=== PATIENT | male | born 1940 | race Caucasian/White ===

== ENCOUNTER 2018-01-30 15:28 | Emergency (ER) | payer MEDICARE, MEDICAID ==
[~2018-01-30] VITALS: Ht 162.6 cm; Wt 58.0 kg
[~2018-01-30 15:28] MED LIST: ALBU8.5H8 IH; ESCI20TA PO; FLUT1AER; HYDR-565 PO; LORA10TA7 PO; OLAN5TAB3 PO; PRO100T PO; TRIA15CR61 TP; [UNRECOGNIZED DRUG - OTHER] PO
[2018-01-30 16:41] LABS: BASOPHILS % (AUTO) 0.3 % (0-1); EOSINOPHILS # (AUTO) 0.2 X10'3 (0-0.9); HEMOGLOBIN 8.5 g/dl (14.0-17.9); LYMPHOCYTES # (AUTO) 0.8 X10'3 (1.1-4.8); LYMPHOCYTES % (AUTO) 10.5 % (21-51); MEAN CORPUSCULAR HEMOGLOBIN 21.5 PG (27.0-31.0); MEAN CORPUSCULAR HGB CONC 31.4 % (33.0-36.5); MEAN CORPUSCULAR VOLUME 68.7 FL (78-98); MEAN PLATELET VOLUME 7.2 FL (7.4-10.4); MONOCYTES # (AUTO) 0.6 X10'3 (0-0.9); MONOCYTES % (AUTO) 7.5 % (2-12); NEUTROPHILS # (AUTO) 6.2 X10'3 (1.8-7.7); NEUTROPHILS % (AUTO) 79.7 % (42-75); PLATELET COUNT 234 X10'3 (140-440); RED BLOOD COUNT 3.93 X10'6 (4.70-6.10); RED CELL DISTRIBUTION WIDTH 19.7 % (11.5-14.5); WHITE BLOOD COUNT 7.8 X10'3 (4.5-11.0)
[2018-01-30 16:50] LABS: INR 1.1 INR; PROTHROMBIN TIME 11.5 SECONDS (9.0-12.0)
[2018-01-30 16:59] LABS: PLATELET ESTIMATE NORMAL
[2018-01-30 17:00] LABS: ANISOCYTOSIS 2+; MICROCYTOSIS 2+
[2018-01-30] MEDS ORDERED: levoFLOXACIN 750MG TABLET PO ONE (17:00)
[2018-01-30] MEDS ORDERED: LORazepam 2 mg/ml vial IV ONE (17:00)
[2018-01-30 17:01] LABS: HYPOCHROMASIA 2+
[2018-01-30 17:04] LABS: ELLIPTOCYTES FEW; POIKILOCYTOSIS 1+; POLYCHROMASIA FEW; SCHISTOCYTES FEW; TARGET CELLS FEW
[2018-01-30] MEDS ORDERED: LORazepam 0.5 MG tablet PO ONE (17:05)
[2018-01-30 17:07] LABS: ALANINE AMINOTRANSFERASE 61 U/L (12-78); ALBUMIN 3.3 G/DL (3.4-5.0); ALKALINE PHOSPHATASE 464 IU/L (46-116); ANION GAP 12 (8-16); CHLORIDE 98 MMOL/L (99-107); CREATININE 1.07 MG/DL (0.60-1.10); POTASSIUM 4.5 MMOL/L (3.5-5.1); SODIUM 136 MMOL/L (135-145); TOTAL CARBON DIOXIDE 26.4 MMOL/L (24-32); eGFR 67 ML/MIN
[2018-01-30 17:09] LABS: ALBUMIN/GLOBULIN RATIO 0.8 (1.1-1.5); ASPARTATE AMINO TRANSFERASE 108 U/L (10-37); BILIRUBIN,TOTAL 0.8 MG/DL (0.1-1.0); BLOOD UREA NITROGEN 16 MG/DL (7-18); CALCIUM 9.2 MG/DL (8.5-10.1); GLUCOSE 104 MG/DL (70-104); TOTAL PROTEIN 7.6 G/DL (6.4-8.2)
[2018-01-30] MEDS ORDERED: normal saline 1000ml 1,000 ML IV ONE (17:10)
[2018-01-30] MEDS ORDERED: normal saline 1000ml 1,000 ML IVB ONE (19:50)
[2018-01-30] MEDS ORDERED: iohexol 350MG/ML 100ml bottle IV ONE (20:12)
[2018-01-30 20:18] VITALS: BP 139/76
[2018-01-30] MEDS ORDERED: POLY17PO10 PO (21:18)
[2018-01-30] MEDS ORDERED: BISA-155 PO (21:18)
== END 2018-01-30 21:58 | disposition home or self-care (01) ==
LOC: ER 15:29
DX: R91.8 Other nonspecific abnormal finding of lung field (principal); K59.00 Constipation, unspecified; J44.9 Chronic obstructive pulmonary disease, unspecified; B19.20 Unspecified viral hepatitis C without hepatic coma; Z87.891 Personal history of nicotine dependence
CPT/HCPCS: 36415; 71045; 71250; 71275; 74176; 80053; 83605; 83735; 83880; 84484; 85025; 85610; 87040; 93005; 99285; J7030; Q9967

== ENCOUNTER 2018-02-21 14:11 | Inpatient (IN) | payer MEDICARE, MEDICAID ==
[~2018-02-21] VITALS: Ht 170.2 cm; Wt 58.0 kg
[~2018-02-21 14:11] MED LIST changes: +BISA-155 PO; +POLY17PO10 PO
[2018-02-21 15:05] LABS: HEMATOCRIT 26.3 % (42.0-52.0); HEMOGLOBIN 8.4 g/dl (14.0-17.9); MEAN CORPUSCULAR HEMOGLOBIN 22.8 PG (27.0-31.0); MEAN CORPUSCULAR HGB CONC 31.8 % (33.0-36.5); MEAN CORPUSCULAR VOLUME 71.5 FL (78-98); MEAN PLATELET VOLUME 7.8 FL (7.4-10.4); PLATELET COUNT 244 X10'3 (140-440); RED BLOOD COUNT 3.68 X10'6 (4.70-6.10); RED CELL DISTRIBUTION WIDTH 23.2 % (11.5-14.5); WHITE BLOOD COUNT 14.4 X10'3 (4.5-11.0)
[2018-02-21] MEDS ORDERED: pantoprazole 40 MG vial IV ONE (15:10)
[2018-02-21] MEDS ORDERED: normal saline 1000ML IV soln IVB ONE (15:10)
[2018-02-21 15:18] LABS: INR 1.2 INR; PARTIAL THROMBOPLASTIN TIME 27 SECONDS (22-32); PROTHROMBIN TIME 12.5 SECONDS (9.0-12.0)
[2018-02-21 15:25] LABS: ALANINE AMINOTRANSFERASE 142 U/L (12-78); ALBUMIN 2.9 G/DL (3.4-5.0); ALKALINE PHOSPHATASE 917 IU/L (46-116); ANION GAP 17 (8-16); CALCIUM 9.1 MG/DL (8.5-10.1); CHLORIDE 92 MMOL/L (99-107); CREATININE 1.62 MG/DL (0.60-1.10); POTASSIUM 4.9 MMOL/L (3.5-5.1); SODIUM 129 MMOL/L (135-145); TOTAL CARBON DIOXIDE 19.6 MMOL/L (24-32); eGFR 42 ML/MIN
[2018-02-21 15:33] LABS: ALBUMIN/GLOBULIN RATIO 0.7 (1.1-1.5); ASPARTATE AMINO TRANSFERASE 322 U/L (10-37); BILIRUBIN,TOTAL 3.5 MG/DL (0.1-1.0); BLOOD UREA NITROGEN 35 MG/DL (7-18); BUN/CREATININE RATIO 21.6 (5.4-32.0); GLUCOSE 105 MG/DL (70-104); MAGNESIUM 2.2 MG/DL (1.5-2.4); TOTAL PROTEIN 7.3 G/DL (6.4-8.2)
[2018-02-21 15:38] LABS: ANISOCYTOSIS 3+; PLATELET ESTIMATE NORMAL; TOTAL CELLS COUNTED 100
[2018-02-21 15:39] LABS: POLYCHROMASIA FEW; TARGET CELLS 1+
[2018-02-21 15:40] LABS: ELLIPTOCYTES FEW; SCHISTOCYTES FEW
[2018-02-21] MEDS ORDERED: DIPH25TA23 PO (15:40)
[2018-02-21] MEDS ORDERED: PRED5TAB PO (15:40)
[2018-02-21] MEDS ORDERED: MUPI22OI30 TOP (15:40)
[2018-02-21] MEDS ORDERED: ondansetron/PF 4mg/2ml inj IV ONE (15:55)
[2018-02-21] MEDS ORDERED: morphine 4 MG/ML inj SYRINge IV ONE (15:55)
[2018-02-21] MEDS ORDERED: LIDOcaine 2% 10ml TOPICAL JELLY (Urojet) MM ONE (16:50)
[2018-02-21 17:22] LABS: CLARITY,URINE CLOUDY (Clear); GLUCOSE, URINE NEGATIVE (Neg); KETONES,URINE TRACE mg/dl (Neg); LEUKOCYTE ESTERASE ,URINE NEGATIVE (Neg); NITRITES, URINE NEGATIVE (Neg); OCCULT BLOOD,URINE NEGATIVE (Neg); PROTEIN,URINE TRACE mg/dl (Neg)
[2018-02-21 17:26] LABS: UA COLLECTION TYPE STRAIGHT CATH
[2018-02-21 17:27] LABS: COLOR,URINE AMBER (Yellow); SQUAMOUS EPITHELIAL CELL,UR FEW /LPF (FEW)
[2018-02-21 17:28] LABS: BACTERIA,URINE 2+ /HPF (Neg); HYALINE CASTS >30 /LPF (NEGATIVE); RBC,URINE 0-2 /HPF (0-2); WBC,URINE 0-4 /HPF (0-4)
[2018-02-21] MEDS ORDERED: mag hydrox/Alum hydrox/simeth 30ml oral suspension PO PRN (17:35)
[2018-02-21] MEDS ORDERED: magnesium Cl slow-release 64mg tablet PO PRN (17:35)
[2018-02-21] MEDS ORDERED: potassium Cl 20 mEq SR tablet PO PRN ×2 (17:35)
[2018-02-21] MEDS ORDERED: magnesium 4gm in 100ml NS 100 ML IV PRN (17:35)
[2018-02-21] MEDS ORDERED: magnesium/D5W IVPB 50 ML IV PRN (17:35)
[2018-02-21] MEDS ORDERED: acetaminophen 325mg tablet PO PRN ×2 (17:35)
[2018-02-21] MEDS ORDERED: potassium Cl 40MEQ/NS 500ml 500 ML IV PRN ×2 (17:35)
[2018-02-21] MEDS ORDERED: magnesium hydroxide 30ml (MOM) UD suspension PO PRN (17:35)
[2018-02-21] MEDS ORDERED: PEG 3350/Na sulf,bicarb,Cl/KCl oral sol 4 liter bottle PO ONE (17:45)
[2018-02-21 18:10] LABS: ABG BASE EXCESS -6.3 mmol/L (-2.0-3.0); ABG HCO3 18.2 mmol/L (22.0-26.0); ABG PCO2 (T) 32.2 mmHg (35.0-48.0); ABG PO2 (T) 80.1 mmHg (83-108); ALLEN'S TEST Positive; FCOHb 1.3 % (0.5-1.5); FLOW 2 L/min; FMetHb 0.3 % (0.3-1.12); FO2Hb 93.5 % (94-100); TOTAL HEMOGLOBIN 8.6 G/dl (14.0-18.0)
[2018-02-21] MEDS: normal saline 1000ml 1,000 ML IV SCH (18:30)
[2018-02-21 19:30] VITALS: BP 134/69
[2018-02-21] MEDS ORDERED: HYDROmorphone 1 mg/ml syringe IV PRN (20:00)
[2018-02-21] MEDS ORDERED: heparin, porcine 5000 units/ml vial SQ SCH (20:00)
[2018-02-21] MEDS: HYDROmorphone 1 mg/ml syringe IV PRN ×2 (20:09→23:45)
[2018-02-21] MEDS: ciprofloxacin 250mg tablet PO SCH (20:10)
[2018-02-21] MEDS ORDERED: temazepam 15mg capsule PO PRN (21:00)
[2018-02-21] MEDS: ondansetron/PF 4mg/2ml inj IV PRN (23:45)
[2018-02-22] VITALS (15 sets, daily range): BP systolic 97–154; BP diastolic 54–71
[2018-02-22] MEDS: HYDROmorphone 1 mg/ml syringe IV PRN (03:50)
[2018-02-22 05:13] LABS: HEMATOCRIT 23.2 % (42.0-52.0); HEMOGLOBIN 7.3 g/dl (14.0-17.9); MEAN CORPUSCULAR HEMOGLOBIN 22.5 PG (27.0-31.0); MEAN CORPUSCULAR HGB CONC 31.6 % (33.0-36.5); MEAN CORPUSCULAR VOLUME 71.2 FL (78-98); MEAN PLATELET VOLUME 7.7 FL (7.4-10.4); PLATELET COUNT 213 X10'3 (140-440); RED BLOOD COUNT 3.26 X10'6 (4.70-6.10); RED CELL DISTRIBUTION WIDTH 22.6 % (11.5-14.5); WHITE BLOOD COUNT 11.6 X10'3 (4.5-11.0)
[2018-02-22] MEDS ORDERED: HYDROmorphone 1 mg/ml syringe IV ONE (05:40)
[2018-02-22 05:41] LABS: ALANINE AMINOTRANSFERASE 139 U/L (12-78); ALBUMIN 2.7 G/DL (3.4-5.0); ALKALINE PHOSPHATASE 823 IU/L (46-116); ANION GAP 17 (8-16); CHLORIDE 96 MMOL/L (99-107); CREATININE 1.45 MG/DL (0.60-1.10); POTASSIUM 4.5 MMOL/L (3.5-5.1); SODIUM 134 MMOL/L (135-145); TOTAL CARBON DIOXIDE 21.1 MMOL/L (24-32); eGFR 47 ML/MIN
[2018-02-22 05:44] LABS: MAGNESIUM 2.1 MG/DL (1.5-2.4)
[2018-02-22 06:01] LABS: ALBUMIN/GLOBULIN RATIO 0.6 (1.1-1.5); BILIRUBIN,TOTAL 4.6 MG/DL (0.1-1.0); BLOOD UREA NITROGEN 42 MG/DL (7-18); GLUCOSE 93 MG/DL (70-104); TOTAL PROTEIN 7.5 G/DL (6.4-8.2)
[2018-02-22 06:35] LABS: ASPARTATE AMINO TRANSFERASE 326 U/L (10-37)
[2018-02-22 06:36] LABS: INR 1.2 INR; PROTHROMBIN TIME 12.6 SECONDS (9.0-12.0)
[2018-02-22 06:37] LABS: PARTIAL THROMBOPLASTIN TIME 27 SECONDS (22-32)
[2018-02-22 06:59] LABS: ANISOCYTOSIS 3+; MICROCYTOSIS 2+; PLATELET ESTIMATE NORMAL; TOTAL CELLS COUNTED 100
[2018-02-22 07:00] LABS: POLYCHROMASIA 1+; TARGET CELLS 1+
[2018-02-22] MEDS: citalopram 20mg tablet PO SCH (07:32)
[2018-02-22] MEDS: K and/or MAG REPLACEMENT MC SCH (07:42)
[2018-02-22 07:47] LABS: OCCULT BLOOD STOOL POSITIVE (Neg)
[2018-02-22] MEDS ORDERED: pantoprazole 40 MG vial IV SCH (08:00)
[2018-02-22] MEDS: ciprofloxacin 250mg tablet PO SCH ×2 (09:21→21:42)
[2018-02-22] MEDS ORDERED: fentaNYL/PF 50MCG/1 ML 2ML syringe ONE (18:03)
[2018-02-22] MEDS ORDERED: LIDOcaine Viscous 15ml cup ONE (18:04)
[2018-02-22] MEDS ORDERED: MIDAZolam 5mg/5ml vial ONE (18:04)
[2018-02-22] MEDS: lactobacillus rhamnosus 10,000 MMU CELLS/CAPSULE PO SCH (21:42)
[2018-02-23] VITALS (16 sets, daily range): BP systolic 98–123; BP diastolic 56–75
[2018-02-23] MEDS: HYDROmorphone 1 mg/ml syringe IV PRN ×4 (03:36→23:56)
[2018-02-23 05:04] LABS: INR 1.3 INR; PARTIAL THROMBOPLASTIN TIME 30 SECONDS (22-32); PROTHROMBIN TIME 13.7 SECONDS (9.0-12.0)
[2018-02-23 05:10] LABS: MEAN CORPUSCULAR HEMOGLOBIN 22.9 PG (27.0-31.0); MEAN CORPUSCULAR VOLUME 71.5 FL (78-98); MEAN PLATELET VOLUME 7.8 FL (7.4-10.4); PLATELET COUNT 190 X10'3 (140-440); RED BLOOD COUNT 2.94 X10'6 (4.70-6.10); WHITE BLOOD COUNT 10.7 X10'3 (4.5-11.0)
[2018-02-23 05:22] LABS: ALANINE AMINOTRANSFERASE 154 U/L (12-78); ALBUMIN 2.5 G/DL (3.4-5.0); ALKALINE PHOSPHATASE 712 IU/L (46-116); ANION GAP 16 (8-16); CHLORIDE 95 MMOL/L (99-107); CREATININE 1.36 MG/DL (0.60-1.10); MAGNESIUM 2.1 MG/DL (1.5-2.4); POTASSIUM 3.9 MMOL/L (3.5-5.1); SODIUM 133 MMOL/L (135-145); TOTAL CARBON DIOXIDE 21.6 MMOL/L (24-32); eGFR 51 ML/MIN
[2018-02-23 05:28] LABS: HEMOGLOBIN 6.7 g/dl (14.0-17.9)
[2018-02-23 05:57] LABS: ASPARTATE AMINO TRANSFERASE 403 U/L (10-37)
[2018-02-23 05:58] LABS: ALBUMIN/GLOBULIN RATIO 0.8 (1.1-1.5); BILIRUBIN,TOTAL 3.9 MG/DL (0.1-1.0); BLOOD UREA NITROGEN 39 MG/DL (7-18); BUN/CREATININE RATIO 28.7 (5.4-32.0); GLUCOSE 82 MG/DL (70-104); TOTAL PROTEIN 5.8 G/DL (6.4-8.2)
[2018-02-23 06:06] LABS: ANISOCYTOSIS 3+; MICROCYTOSIS 2+; PLATELET ESTIMATE NORMAL; TARGET CELLS 1+; TOTAL CELLS COUNTED 100
[2018-02-23 06:07] LABS: HYPOCHROMASIA 1+; POLYCHROMASIA 1+
[2018-02-23] MEDS: lactobacillus rhamnosus 10,000 MMU CELLS/CAPSULE PO SCH ×2 (07:29→20:13)
[2018-02-23] MEDS: ciprofloxacin 250mg tablet PO SCH ×2 (07:29→20:13)
[2018-02-23] MEDS: pantoprazole 40mg Tablet.DR PO SCH (07:30)
[2018-02-23] MEDS: citalopram 20mg tablet PO SCH (07:30)
[2018-02-23] MEDS: K and/or MAG REPLACEMENT MC SCH (08:00)
[2018-02-23] MEDS ORDERED: furosemide 20 MG/2 ML vial IV ONE (14:55)
[2018-02-23] MEDS: normal saline 1000ml 1,000 ML IV SCH (17:35)
[2018-02-23 22:02] LABS: HEMATOCRIT 28.8 % (42.0-52.0); HEMOGLOBIN 9.2 g/dl (14.0-17.9); MEAN CORPUSCULAR HEMOGLOBIN 24.3 PG (27.0-31.0); MEAN CORPUSCULAR VOLUME 75.8 FL (78-98); MEAN PLATELET VOLUME 7.8 FL (7.4-10.4); PLATELET COUNT 169 X10'3 (140-440); RED BLOOD COUNT 3.79 X10'6 (4.70-6.10); RED CELL DISTRIBUTION WIDTH 23.7 % (11.5-14.5); WHITE BLOOD COUNT 10.6 X10'3 (4.5-11.0)
[2018-02-23 22:32] LABS: ANISOCYTOSIS 3+; HYPOCHROMASIA 1+; MICROCYTOSIS 2+; PLATELET ESTIMATE NORMAL; POLYCHROMASIA 1+; TARGET CELLS 1+; TOTAL CELLS COUNTED 100
[2018-02-24] VITALS: BP 123/67
[2018-02-24] MEDS: normal saline 1000ml 1,000 ML IV SCH (04:10)
[2018-02-24] MEDS: HYDROmorphone 1 mg/ml syringe IV PRN ×3 (05:39→21:42)
[2018-02-24 06:49] LABS: HEMOGLOBIN 9.7 g/dl (14.0-17.9); MEAN CORPUSCULAR HEMOGLOBIN 24.5 PG (27.0-31.0); MEAN CORPUSCULAR HGB CONC 32.3 % (33.0-36.5); MEAN CORPUSCULAR VOLUME 75.9 FL (78-98); MEAN PLATELET VOLUME 8.2 FL (7.4-10.4); PLATELET COUNT 181 X10'3 (140-440); RED BLOOD COUNT 3.96 X10'6 (4.70-6.10); WHITE BLOOD COUNT 12.9 X10'3 (4.5-11.0)
[2018-02-24 07:01] VITALS: BP 112/69
[2018-02-24 07:09] LABS: INR 1.3 INR; PARTIAL THROMBOPLASTIN TIME 31 SECONDS (22-32); PROTHROMBIN TIME 12.9 SECONDS (9.0-12.0)
[2018-02-24 07:18] LABS: ANISOCYTOSIS 3+; MICROCYTOSIS 2+; PLATELET ESTIMATE NORMAL; TOTAL CELLS COUNTED 100
[2018-02-24 07:19] LABS: HYPOCHROMASIA 1+; POLYCHROMASIA 1+; TARGET CELLS FEW
[2018-02-24 07:26] LABS: ALANINE AMINOTRANSFERASE 183 U/L (12-78); ALBUMIN 2.5 G/DL (3.4-5.0); ALKALINE PHOSPHATASE 791 IU/L (46-116); ANION GAP 14 (8-16); CHLORIDE 93 MMOL/L (99-107); CREATININE 1.17 MG/DL (0.60-1.10); MAGNESIUM 1.9 MG/DL (1.5-2.4); POTASSIUM 4.1 MMOL/L (3.5-5.1); SODIUM 128 MMOL/L (135-145); TOTAL CARBON DIOXIDE 21.1 MMOL/L (24-32); eGFR 61 ML/MIN
[2018-02-24 07:41] LABS: ALBUMIN/GLOBULIN RATIO 0.6 (1.1-1.5); BILIRUBIN,TOTAL 8.1 MG/DL (0.1-1.0); BLOOD UREA NITROGEN 42 MG/DL (7-18); BUN/CREATININE RATIO 35.9 (5.4-32.0); CALCIUM 9.2 MG/DL (8.5-10.1); GLUCOSE 111 MG/DL (70-104); TOTAL PROTEIN 6.5 G/DL (6.4-8.2)
[2018-02-24 07:42] LABS: ASPARTATE AMINO TRANSFERASE 436 U/L (10-37)
[2018-02-24] MEDS: K and/or MAG REPLACEMENT MC SCH (08:00)
[2018-02-24] MEDS: ciprofloxacin 250mg tablet PO SCH ×2 (08:46→19:23)
[2018-02-24] MEDS: lactobacillus rhamnosus 10,000 MMU CELLS/CAPSULE PO SCH ×2 (08:46→19:23)
[2018-02-24] MEDS: citalopram 20mg tablet PO SCH (08:46)
[2018-02-24] MEDS: pantoprazole 40mg Tablet.DR PO SCH (08:47)
[2018-02-24] MEDS: ondansetron/PF 4mg/2ml inj IV PRN (10:55)
[2018-02-24 11:49] VITALS: BP 99/57
[2018-02-24] MEDS: Protein Shake (high protein) 240ml (8oz) cup PO SCH (18:00)
[2018-02-24 19:00] VITALS: BP 112/69
[2018-02-24] MEDS: traMADol 50MG tablet PO PRN (19:23)
[2018-02-24] MEDS: sodium chloride 1gm tablet PO SCH (19:24)
[2018-02-24 23:45] VITALS: BP 101/58
[2018-02-25 03:44] LABS: HEMATOCRIT 28.1 % (42.0-52.0); HEMOGLOBIN 9.1 g/dl (14.0-17.9); MEAN CORPUSCULAR HEMOGLOBIN 24.9 PG (27.0-31.0); MEAN CORPUSCULAR HGB CONC 32.4 % (33.0-36.5); MEAN CORPUSCULAR VOLUME 76.7 FL (78-98); MEAN PLATELET VOLUME 7.8 FL (7.4-10.4); PLATELET COUNT 138 X10'3 (140-440); RED BLOOD COUNT 3.66 X10'6 (4.70-6.10); RED CELL DISTRIBUTION WIDTH 24.1 % (11.5-14.5); WHITE BLOOD COUNT 9.5 X10'3 (4.5-11.0)
[2018-02-25 03:48] LABS: INR 1.2 INR; PROTHROMBIN TIME 12.7 SECONDS (9.0-12.0)
[2018-02-25 04:12] LABS: ALANINE AMINOTRANSFERASE 175 U/L (12-78); ALBUMIN 2.2 G/DL (3.4-5.0); ALBUMIN/GLOBULIN RATIO 0.6 (1.1-1.5); ALKALINE PHOSPHATASE 729 IU/L (46-116); ANION GAP 12 (8-16); ASPARTATE AMINO TRANSFERASE 391 U/L (10-37); BILIRUBIN,TOTAL 7.7 MG/DL (0.1-1.0); BLOOD UREA NITROGEN 40 MG/DL (7-18); BUN/CREATININE RATIO 35.7 (5.4-32.0); CALCIUM 8.2 MG/DL (8.5-10.1); CHLORIDE 93 MMOL/L (99-107); CREATININE 1.12 MG/DL (0.60-1.10); GLUCOSE 107 MG/DL (70-104); POTASSIUM 4.1 MMOL/L (3.5-5.1); SODIUM 127 MMOL/L (135-145); TOTAL CARBON DIOXIDE 22.5 MMOL/L (24-32); TOTAL PROTEIN 5.8 G/DL (6.4-8.2); eGFR 64 ML/MIN
[2018-02-25] MEDS: normal saline 1000ml 1,000 ML IV SCH (04:28)
[2018-02-25] MEDS: HYDROmorphone 1 mg/ml syringe IV PRN ×2 (04:28→19:47)
[2018-02-25] MEDS: traMADol 50MG tablet PO PRN (04:36)
[2018-02-25 04:55] LABS: TOTAL CELLS COUNTED 100
[2018-02-25 04:56] LABS: ANISOCYTOSIS 2+; HYPOCHROMASIA 1+; PLATELET ESTIMATE NORMAL; POLYCHROMASIA 1+; TARGET CELLS FEW
[2018-02-25 07:00] VITALS: BP 104/63
[2018-02-25] MEDS: citalopram 20mg tablet PO SCH (07:45)
[2018-02-25] MEDS: sodium chloride 1gm tablet PO SCH ×3 (07:45→20:05)
[2018-02-25] MEDS: ciprofloxacin 250mg tablet PO SCH ×2 (07:45→20:05)
[2018-02-25] MEDS: pantoprazole 40mg Tablet.DR PO SCH (07:45)
[2018-02-25] MEDS: Protein Shake (high protein) 240ml (8oz) cup PO SCH ×3 (07:45→18:00)
[2018-02-25] MEDS: lactobacillus rhamnosus 10,000 MMU CELLS/CAPSULE PO SCH ×2 (07:45→20:05)
[2018-02-25] MEDS: K and/or MAG REPLACEMENT MC SCH (08:00)
[2018-02-25 11:25] VITALS: BP 124/69
[2018-02-25 18:00] VITALS: BP 111/63
[2018-02-26] VITALS: BP 94/62
[2018-02-26] MEDS: HYDROmorphone 1 mg/ml syringe IV PRN ×3 (04:45→15:45)
[2018-02-26 04:59] LABS: HEMATOCRIT 29.1 % (42.0-52.0); HEMOGLOBIN 9.3 g/dl (14.0-17.9); MEAN CORPUSCULAR HEMOGLOBIN 24.5 PG (27.0-31.0); MEAN CORPUSCULAR HGB CONC 31.9 % (33.0-36.5); MEAN CORPUSCULAR VOLUME 76.8 FL (78-98); MEAN PLATELET VOLUME 8.2 FL (7.4-10.4); PLATELET COUNT 131 X10'3 (140-440); RED BLOOD COUNT 3.79 X10'6 (4.70-6.10); RED CELL DISTRIBUTION WIDTH 24.6 % (11.5-14.5)
[2018-02-26 05:09] LABS: INR 1.2 INR; PROTHROMBIN TIME 12.3 SECONDS (9.0-12.0)
[2018-02-26 05:23] LABS: ALANINE AMINOTRANSFERASE 152 U/L (12-78); ALBUMIN 2.2 G/DL (3.4-5.0); ALKALINE PHOSPHATASE 723 IU/L (46-116); ANION GAP 11 (8-16); CHLORIDE 94 MMOL/L (99-107); CREATININE 0.93 MG/DL (0.60-1.10); MAGNESIUM 1.9 MG/DL (1.5-2.4); POTASSIUM 4.3 MMOL/L (3.5-5.1); SODIUM 128 MMOL/L (135-145); TOTAL CARBON DIOXIDE 22.6 MMOL/L (24-32); eGFR 79 ML/MIN
[2018-02-26 05:40] LABS: ALBUMIN/GLOBULIN RATIO 0.6 (1.1-1.5); ASPARTATE AMINO TRANSFERASE 300 U/L (10-37); BILIRUBIN,TOTAL 8.7 MG/DL (0.1-1.0); BLOOD UREA NITROGEN 36 MG/DL (7-18); BUN/CREATININE RATIO 38.7 (5.4-32.0); CALCIUM 8.4 MG/DL (8.5-10.1); GLUCOSE 91 MG/DL (70-104); TOTAL PROTEIN 5.9 G/DL (6.4-8.2)
[2018-02-26 06:12] LABS: ANISOCYTOSIS 3+; HYPOCHROMASIA 1+; PLATELET ESTIMATE DECREASED; TOTAL CELLS COUNTED 100
[2018-02-26 06:13] LABS: POLYCHROMASIA 1+; TARGET CELLS FEW
[2018-02-26] MEDS: Protein Shake (high protein) 240ml (8oz) cup PO SCH ×3 (08:00→18:00)
[2018-02-26] MEDS: K and/or MAG REPLACEMENT MC SCH (08:00)
[2018-02-26] MEDS: citalopram 20mg tablet PO SCH (09:20)
[2018-02-26] MEDS: lactobacillus rhamnosus 10,000 MMU CELLS/CAPSULE PO SCH ×2 (09:21→20:13)
[2018-02-26] MEDS: ciprofloxacin 250mg tablet PO SCH ×2 (09:21→20:13)
[2018-02-26] MEDS: pantoprazole 40mg Tablet.DR PO SCH (09:22)
[2018-02-26] MEDS: sodium chloride 1gm tablet PO SCH ×3 (09:22→20:13)
[2018-02-26 19:45] VITALS: BP 102/63
[2018-02-27 00:05] VITALS: BP 112/66
[2018-02-27] MEDS: HYDROmorphone 1 mg/ml syringe IV PRN ×4 (01:41→18:26)
[2018-02-27] MEDS: lactobacillus rhamnosus 10,000 MMU CELLS/CAPSULE PO SCH ×2 (07:41→20:23)
[2018-02-27] MEDS: K and/or MAG REPLACEMENT MC SCH (07:41)
[2018-02-27] MEDS: ciprofloxacin 250mg tablet PO SCH ×2 (07:41→20:23)
[2018-02-27] MEDS: citalopram 20mg tablet PO SCH (07:41)
[2018-02-27] MEDS: Protein Shake (high protein) 240ml (8oz) cup PO SCH ×3 (07:41→18:30)
[2018-02-27] MEDS: pantoprazole 40mg Tablet.DR PO SCH (07:41)
[2018-02-27] MEDS: sodium chloride 1gm tablet PO SCH ×3 (07:41→20:23)
[2018-02-27 08:00] VITALS: BP 116/69
[2018-02-27 11:00] VITALS: BP 106/64
[2018-02-27] MEDS: traMADol 50MG tablet PO PRN (15:13)
[2018-02-27] MEDS: normal saline 1000ml 1,000 ML IV SCH (18:30)
[2018-02-27 19:00] VITALS: BP 114/65
[2018-02-28 00:05] VITALS: BP 148/78
[2018-02-28] MEDS: HYDROmorphone 1 mg/ml syringe IV PRN ×5 (04:20→23:09)
[2018-02-28 07:00] VITALS: BP 130/73
[2018-02-28] MEDS: pantoprazole 40mg Tablet.DR PO SCH ×2 (07:30→08:18)
[2018-02-28] MEDS: lactobacillus rhamnosus 10,000 MMU CELLS/CAPSULE PO SCH ×3 (08:00→20:00)
[2018-02-28] MEDS: citalopram 20mg tablet PO SCH ×2 (08:00→08:18)
[2018-02-28] MEDS: K and/or MAG REPLACEMENT MC SCH (08:00)
[2018-02-28] MEDS: sodium chloride 1gm tablet PO SCH ×4 (08:00→20:22)
[2018-02-28] MEDS: ciprofloxacin 250mg tablet PO SCH ×2 (08:00→08:18)
[2018-02-28] MEDS: Protein Shake (high protein) 240ml (8oz) cup PO SCH ×3 (08:18→18:22)
[2018-02-28 11:33] VITALS: BP 118/73
[2018-02-28] MEDS: traMADol 50MG tablet PO PRN ×2 (11:53)
[2018-02-28] MEDS: albuterol 2.5 MG/3 ML nebule NEB PRN ×2 (12:07→20:44)
[2018-02-28 18:00] VITALS: BP 137/82
[2018-02-28] MEDS ORDERED: furosemide 40mg/4ml inj IV ONE (21:10)
[2018-02-28] MEDS: morphine 2 MG/ML inj. syringe IV PRN (21:24)
[2018-02-28] MEDS ORDERED: ipratropium/albuterol 3ml nebule IH ONE (21:25)
[2018-02-28] MEDS ORDERED: ipratropium/albuterol 3ml nebule IH PRN (21:25)
[2018-03-01] VITALS: BP 128/81
[2018-03-01] MEDS: morphine 4 MG/ML inj SYRINge IV PRN ×2 (00:33→09:47)
[2018-03-01] MEDS: HYDROmorphone 1 mg/ml syringe IV PRN ×2 (03:27→07:57)
[2018-03-01] MEDS: morphine 2 MG/ML inj. syringe IV PRN (05:36)
[2018-03-01] MEDS ORDERED: furosemide 40mg/4ml inj IV ONE (06:25)
[2018-03-01] MEDS: pantoprazole 40mg Tablet.DR PO SCH (07:30)
[2018-03-01] MEDS: citalopram 20mg tablet PO SCH (07:55)
[2018-03-01] MEDS: lactobacillus rhamnosus 10,000 MMU CELLS/CAPSULE PO SCH (07:55)
[2018-03-01] MEDS: Protein Shake (high protein) 240ml (8oz) cup PO SCH (07:55)
[2018-03-01] MEDS: sodium chloride 1gm tablet PO SCH (07:56)
[2018-03-01] MEDS: K and/or MAG REPLACEMENT MC SCH (08:00)
[2018-03-01 08:26] VITALS: BP 110/63
[2018-03-01] MEDS ORDERED: PANT40TA4 PO (08:49)
[2018-03-01] MEDS ORDERED: IPRA3AMP9 IH (08:49)
[2018-03-01] MEDS ORDERED: LACT1CAP26 PO (08:49)
[2018-03-01] MEDS ORDERED: LORazepam 1 MG tablet PO PRN (11:15)
[2018-03-01] MEDS ORDERED: morphine 10mg/0.5ml (conc. morphine) oral syringe PO PRN ×2 (11:15→14:25)
[2018-03-01] MEDS ORDERED: morphine 10mg/0.5ml (conc. morphine) oral syringe PO ONE (14:25)
[2018-03-01] MEDS ORDERED: atropine sulfate 1% ophthalmic drops SL PRN (15:00)
== END 2018-03-01 18:40 | disposition expired | DRG 374 ==
LOC: ER 14:12 → ED HOLD 17:35 → SUR 3N 19:07
PROVIDERS: ADMIT Internal Medicine; ATTEND Family Medicine
PROC: 0DB68ZX Excision of Stomach, Via Natural or Artificial Opening Endoscopic, Diagnostic (ICD-10-PCS; principal; 2018-02-22)
PROC: 0DBK8ZX Excision of Ascending Colon, Via Natural or Artificial Opening Endoscopic, Diagnostic (ICD-10-PCS; 2018-02-22)
PROC: 30233N1 Transfusion of Nonautologous Red Blood Cells into Peripheral Vein, Percutaneous Approach (ICD-10-PCS; 2018-02-23)
DX: C18.2 Malignant neoplasm of ascending colon (principal); E43 Unspecified severe protein-calorie malnutrition; K72.00 Acute and subacute hepatic failure without coma; C78.7 Secondary malignant neoplasm of liver and intrahepatic bile duct; E87.1 Hypo-osmolality and hyponatremia; C78.00 Secondary malignant neoplasm of unspecified lung; E87.2 Acidosis; N17.9 Acute kidney failure, unspecified; K51.00 Ulcerative (chronic) pancolitis without complications; R18.8 Other ascites; K22.2 Esophageal obstruction; K29.50 Unspecified chronic gastritis without bleeding; K74.60 Unspecified cirrhosis of liver; N18.9 Chronic kidney disease, unspecified; R09.2 Respiratory arrest; M25.551 Pain in right hip; W18.39XA Other fall on same level, initial encounter; Y92.238 Other place in hospital as the place of occurrence of the external cause; D64.9 Anemia, unspecified; J44.9 Chronic obstructive pulmonary disease, unspecified; F17.210 Nicotine dependence, cigarettes, uncomplicated; B19.20 Unspecified viral hepatitis C without hepatic coma; R79.89 Other specified abnormal findings of blood chemistry; Z66 Do not resuscitate; Z51.5 Encounter for palliative care; Z68.20 Body mass index [BMI] 20.0-20.9, adult; Y93.89 Activity, other specified; Y99.8 Other external cause status
CPT/HCPCS: 36415; 36600; 43239; 45380; 70450; 71045; 72170; 74176; 80053; 81001; 82272; 82803; 83605; 83735; 83880; 84145; 84484; 85018; 85025; 85610; 85730; 86644; 86885; 86900; 86901; 86920; 86945; 87040; 87070; 88305; 88341; 88342; 93005; 94640; 94760; 96361; 96374; 96375; 99285; A4315; A4353; A4620; A6212; A6213; A6255; A6258; A6402; C9113; G0500; J1170; J1940; J2250; J2270; J2405; J3010; J7030; P9016